=== PATIENT | male | born 1990 | race Caucasian/White ===

== ENCOUNTER 2020-04-30 18:08 | Emergency (ER) | payer OTHER, SELFPAY ==
[2020-04-30 18:15] VITALS: BP 160/105; PULSE 79; RESP 18; TEMP 36.6; O2SAT 99
--- NOTE | 2020-04-30 18:23 | ED.GENADUL_ITS ---
Discharge Plan Disposition Patient Disposition: HOME Condition: Stable Discharge Details Chief Complaint: HeadInjury Clinical Impression: Forehead laceration [facility] Provider: [facility] Provider: Briana Alvarado Discharge Instructions Instructions: Facial Laceration (ED) Additional Instructions: Have sutures removed in 7 to 10 days. #4 simple interrupted sutures placed. Please be seen sooner if any signs of infection including increased redness, swelling, drainage or red streaks. Follow up with primary care provider in 3-5 days. Return to ED sooner if any worsening or concerns. Increase oral fluids. Please take Tylenol or Ibuprofen with food every 4-6 hours as needed for pain and swelling. Keep clean and dry. No soaking. Leave alone for the first 12 to 24 hours. You may apply antibiotic ointment if needed for the first day otherwise allow to air dry. Medical Decision Making Laceration repaired as noted in procedure note above. Anesthesia was achieved with 1% lidocaine with epinephrine. Wound was extensively cleaned and irrigated with normal saline and chlorhexidine surgical scrub. Wound well approximated. 4 simple interrupted 4.0 Ethilon sutures placed patient tolerated well. Discussed home care and timeframe for suture removal, verbalized understanding. Discussed strict return instructions and red flags including infection and symptoms of closed head injury. Patient remained urodynamically stable throughout stay alert and oriented. No foreign bodies visualized. This text was generated using [employer] dictation system, please disregard any oddities of phrase or misspellings. HPI General Mode of arrival: ambulatory . Date/Time Provider Initiated Documentation: 04/30/20 18:11 . Limitations to Documentation: no limitations . Information obtained by: patient . HPI Narrative: 29-year-old male presents to the ER with a chief complaint of right frontal scalp laceration which occurred proximately 1 hour prior to arrival. Patient states he was walking around outside and slipped on wet ground hitting a rock. He denies any loss of consciousness, no neck pain no back pain. He has approximately 2-1/2 cm crescent shaped laceration noted to the medial aspect of his right eyebrow. Reports mild headache no blurry vision or visual disturbances. EOMs are intact bilaterally. No other evidence of other injuries or trauma. Denies alcohol or illegal substances. Is a non-smoker. He reports his last tetanus shot was within the last 5 to 10 years. Review of Systems All systems reviewed & are unremarkable except as noted in HPI and below Integumentary/Breasts Skin/Breast: Reports wounds (Laceration noted to the right frontal scalp) [facility] Social History Smoking/Tobacco Use Status: Never Alcohol Intake: never Drug use: Never Substance use type: does not use Do you feel safe at home: Yes Do you feel safe in your relationship?: Yes Exam HENMT Face and sinus: sinuses nontender, face symmetric, laceration right supraoribital and no sinus tenderness Face images: 1. Approximate 2-1/2 cm crescent shaped laceration partial-thickness Procedures Laceration Laceration 1: Site: face Side (If applicable): right Size (cm): 2.5 Description: linear (crescent) and contaminated Depth: simple, single layer Local Anesthetic: Lidocaine 1% and with Epi Amount of anesthesia used (mL): 1.5 Pre-repair: wound explored, irrigated extensively and deep structures intact Skin layer closed with: nylon Size (cm): 4-0 Number of sutures: 4 Technique: simple, interrupted
[2020-04-30 19:14] VITALS: BP 146/86; PULSE 76; RESP 16; O2SAT 100
== END 2020-04-30 19:15 | disposition home or self-care (01) ==
PROVIDERS: Emergency Provider Registered Nurse Emergency
DX: S01.81XA Laceration without foreign body of other part of head, initial encounter (principal); W01.198A Fall on same level from slipping, tripping and stumbling with subsequent striking against other object, initial encounter
CPT/HCPCS: 12011